=== PATIENT | female | born 1955 | race Hispanic/Latino ===

== ENCOUNTER 2020-09-04 18:21 | Emergency (ER) | payer OTHER ==
[~2020-09-04] VITALS: Ht 154.9 cm; Wt 61.7 kg
--- NOTE | 2020-09-04 18:50 | NUR ---
report to SHERICE Olivares
[2020-09-04] MEDS ORDERED: IBUPROFEN600 MG PO (19:05)
[2020-09-04] MEDS ORDERED: CYCLOBENZAPRINE5 MG PO (19:05)
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
== END 2020-09-04 19:12 | disposition home or self-care (01) ==
LOC: FSED 18:27
DX: S29.012A Strain of muscle and tendon of back wall of thorax, initial encounter (principal); M54.2 Cervicalgia; R51.9 Headache, unspecified; V47.5XXA Car driver injured in collision with fixed or stationary object in traffic accident, initial encounter; Y92.488 Other paved roadways as the place of occurrence of the external cause; I10 Essential (primary) hypertension; E11.9 Type 2 diabetes mellitus without complications; E78.5 Hyperlipidemia, unspecified
CPT/HCPCS: 99282

== ENCOUNTER 2021-06-22 13:08 | Emergency (ER) | payer OTHER ==
[~2021-06-22] VITALS: Ht 154.9 cm; Wt 61.0 kg
[~2021-06-22 13:08] MED LIST: CYCLOBENZAPRINE5 MG PO; IBUPROFEN600 MG PO
[2021-06-22] MEDS ORDERED: LORATADINE10 MG PO (15:07)
[2021-06-22] MEDS ORDERED: CEFDINIR300 MG PO (15:07)
[2021-06-22] MEDS ORDERED: FLONASE ALLERG9.9 ML INH (15:07)
== END 2021-06-22 15:14 | disposition home or self-care (01) ==
LOC: FSED 13:27
DX: H66.93 Otitis media, unspecified, bilateral (principal); J30.9 Allergic rhinitis, unspecified; I10 Essential (primary) hypertension; E11.8 Type 2 diabetes mellitus with unspecified complications; E78.5 Hyperlipidemia, unspecified
CPT/HCPCS: 99283